=== PATIENT | male | born 1980 | race African-American/Black ===

== ENCOUNTER 2018-03-31 12:13 | Emergency (ER) | payer OTHER ==
--- NOTE | 2018-03-31 13:12 | EDPHY ---
H & P Time Seen by Provider: 03/31/18 12:53 HPI/ROS: CHIEF COMPLAINT: Finger laceration HISTORY OF PRESENT ILLNESS: 37-year-old male here with right great thumb laceration. Reports he was using a table saw and lacerated the tip of the right thumb on the table saw. His tetanus is up-to-date. He is not take any blood thinners and takes no prescribed medication. There is no alcohol or drugs involved. REVIEW OF SYSTEMS: Constitutional: No fever, no chills. Eyes: No discharge. ENT: No sore throat. Cardiovascular: No chest pain, no palpitations. Respiratory: No cough, no shortness of breath. Gastrointestinal: No abdominal pain, no vomiting. Genitourinary: No hematuria. Musculoskeletal: No back pain. Skin: No rashes. Neurological: No headache. Smoking Status: Never smoked Physical Exam: General Appearance: Alert and no distress. Eyes: Pupils equal and round no injection. Respiratory: Chest is nontender, lungs are clear to auscultation. Cardiac: regular rate and rhythm. Gastrointestinal: Abdomen is soft and nontender, no masses, bowel sounds normal. Musculoskeletal: Neck is supple and nontender. Extremities have full range of motion and are nontender. Skin: No rashes. Laceration to the pulp of the right great thumb. No finger nail involvement. No bony involvement. Full range of motion of the interphalangeal joint no evidence of tendon injury. Constitutional: Initial Vital Signs Temperature (C) 36.6 C 03/31/18 12:19 Heart Rate 81 03/31/18 12:19 Respiratory Rate 18 03/31/18 12:19 Blood Pressure 155/89 H 03/31/18 12:19 O2 Sat (%) 98 03/31/18 12:19 O2 Delivery Mode Room Air Allergies/Adverse Reactions: No Known Allergies Allergy (Verified 03/31/18 12:19) Home Medications: Medication Instructions Recorded CONCEPCION-D 12 HOUR TABLET 03/26/16 ALBUTEROL SULFATE 03/31/18 Hydrocodone/APAP 5/325 [[place] 1 tab PO Q6 #12 tab 03/31/18 5/325 (*)] Medical Decision Making Procedures: Procedure: Laceration repair. Verbal consent was obtained from the patient. The right thumb laceration on the pulp of the right thumb was anesthetized in the usual fashion. The wound was irrigated, draped and explored to its base. There were no deep structures involved. No tendon injury was identified. The wound was repaired with 7 5-0 nylon sutures. The wound repair was well approximated. The procedure was performed by myself. ED Course/Re-evaluation: 37-year-old male here with right thumb laceration. X-ray shows no bony involvement or foreign body. He is neurovascular and intact with full range of motion of the thumb. Laceration repair as detailed below. He was given orthopedic follow-up to ensure that the tip of the thumb is healing well. He is placed in a splint. Departure - Departure Disposition: Home, Routine, Self-Care Clinical Impression: Finger laceration Condition: Good Instructions: Laceration (ED) Additional Instructions: Please call Orthopedics Monday morning for follow-up in next 2-3 days. Return to the ER for any fever, worsening pain, changes in coloration of the finger tip or other worrisome symptoms. Referrals: ASHELY RIZVI [Primary Care Provider] - As per Instructions Renato Carolina MD [Medical Doctor] - As per Instructions Prescriptions: Hydrocodone/APAP 5/325 [[place] 5/325 (*)] 1 tab PO Q6 #12 tab
[2018-03-31 14:49] VITALS: BP 129/85
== END 2018-03-31 14:48 | disposition home or self-care (01) ==
PROC: 0HQFXZZ Repair Right Hand Skin, External Approach (ICD-10-PCS; principal; 2018-03-31)
DX: S61.011A Laceration without foreign body of right thumb without damage to nail, initial encounter (principal); W31.2XXA Contact with powered woodworking and forming machines, initial encounter